=== PATIENT | male | born 1940 | race Asian ===

== ENCOUNTER 2024-12-04 07:01 | Day surgery (SDC) | payer OTHER ==
[~2024-12-04] VITALS: Ht 152.4 cm; Wt 68.2 kg
[~2024-12-04 07:01] MED LIST: SODIUM CHLORIDE 0.9% 1,000 ML ONE
[2024-12-04] MEDS ORDERED: APIX2.5T PO (07:46)
[2024-12-04] MEDS ORDERED: MONT-35 PO (07:46)
[2024-12-04] MEDS ORDERED: LOSA-382 PO (07:46)
[2024-12-04] MEDS ORDERED: SIMV-259 PO (07:46)
[2024-12-04] MEDS ORDERED: BENZ-227 PO (07:46)
[2024-12-04] MEDS ORDERED: TAMS0.4C94 PO (07:46)
[2024-12-04] MEDS ORDERED: LINA5TAB PO (07:46)
[2024-12-04] MEDS ORDERED: TRAZ-252 PO (07:46)
[2024-12-04] MEDS: SODIUM CHLORIDE 0.9% 1,000 ML IV ONE (07:47)
[2024-12-04] MEDS ORDERED: POVI5DRO OU (07:50)
[2024-12-04] MEDS ORDERED: ALBU18HF12 IH (07:50)
[2024-12-04] MEDS ORDERED: XALA2.5OS OU (07:50)
[2024-12-04] MEDS ORDERED: DORZ10DR6 OU (07:50)
[2024-12-04] MEDS ORDERED: FLUT16SP NASAL (07:50)
[2024-12-04 08:05] LABS: GLUCOMETER DEV NAME(LOC) SDS.; GLUCOSE,POINT OF CARE 122 MG/DL (70-110)
[2024-12-04] MEDS ORDERED: FentaNYL CITRATE PF 100 MCG/2 ML VIAL ONE (08:44)
[2024-12-04] MEDS ORDERED: MIDAZOLAM HCL 2 MG/2 ML VIAL ONE (08:45)
[2024-12-04 09:27] VITALS: PULSE 58; RESP 20; O2SAT 99
[2024-12-04] MEDS ORDERED: MethylPREDNISolone SOD SUCC 125 MG/2 ML VIAL ONE (09:42)
[2024-12-04] MEDS: MethylPREDNISolone SOD SUCC 125 MG/2 ML VIAL IVP ONE (10:13)
[2024-12-04] MEDS ORDERED: LIDOCAINE 2% 11 ML JELLY ONE (12:00)
[2024-12-04] MEDS ORDERED: BENZOCAINE 20% 50 MCG/SPRAY 57 GM ONE (12:00)
[2024-12-04] MEDS ORDERED: LIDOCAINE 4% 50 ML SOLUTION ONE (12:00)
[2024-12-04] MEDS ORDERED: ALBUTEROL SULFATE 2.5 MG/0.5 ML NEB SOLUTION NEB ONE (12:00)
== END 2024-12-04 14:36 | disposition home or self-care (01) ==
LOC: SURGERY 07:01
PROVIDERS: ATTEND Internal Medicine Critical Care Medicine
DX: R05.3 Chronic cough (principal); J38.4 Edema of larynx; B37.0 Candidal stomatitis; E11.9 Type 2 diabetes mellitus without complications; Z98.49 Cataract extraction status, unspecified eye; Z98.890 Other specified postprocedural states; Z87.01 Personal history of pneumonia (recurrent)
CPT/HCPCS: 31623; 82962; 87206; 87101; 87220; 87070; 88108; 31624; 71045; 87015; 87150; J3010; J2250; J2919; J7030; J7613; Z7610